=== PATIENT | male | born 1990 | race African-American/Black ===

== ENCOUNTER 2018-10-23 09:54 | Emergency (ER) | payer SELFPAY ==
[2018-10-23 10:08] VITALS: BP 124/76; PULSE 106; TEMP 100.4; BMI 33.3
[2018-10-23] MEDS ORDERED: ACETAMINOPHEN 325 MG TABLET (FP) PO ONE (10:49)
[2018-10-23] MEDS ORDERED: ACETAMINOPHEN 325 MG TABLET (FP) ONE (10:52)
--- NOTE | 2018-10-23 10:54 | PDOC ---
History of Present Illness - General Chief Complaint: Sore Throat Stated Complaint: STREP THROAT Time Seen by Provider: 10/23/18 10:35 History Source: Patient Exam Limitations: Clinical Condition - History of Present Illness Initial Comments: 10/23/18 10:52 Patient with no significant past medical history present with complaint of 2 day history of sore throat and fever. Patient reports taking Motrin for fever yesterday and no medication today. Denies cough, shortness of breath, nasal congestion, nausea or vomiting. Denies abdominal pains. Denies any other symptoms Timing/Duration: other (2 days) Past History - Past Medical History Allergies/Adverse Reactions: Allergies Allergy/AdvReac Type Severity Reaction Status Date / Time No Known Allergies Allergy Verified 10/23/18 10:09 Home Medications: Ambulatory Orders Amox-Tr/K Cl [Augmentin - 875Mg Tablet] 1 tab PO BID #14 tablet 10/23/18 COPD: No - Immunization History Immunization Up to Date: Yes - Suicide/Smoking/Psychosocial Hx Smoking History: Never smoked Hx Alcohol Use: No Drug/Substance Use Hx: No Review of Systems - Review of Systems Able to Perform ROS?: Yes Is the patient limited Nauruan proficient: No Constitutional: Yes: Fever. No: Malaise, Weakness HEENTM: Yes: Symptoms Reported, See HPI, Throat Pain, Difficulty Swallowing. No : Eye Pain, Blurred Vision, Tearing, Recent change in vision, Double Vision, Cataracts, Ear Pain, Ocular Prothesis, Ear Discharge, Nose Pain, Nose Congestion , Tinnitus, Nose Bleeding, Hearing Loss, Throat Swelling, Mouth Pain, Dental Problems, Mouth Swelling, Other Respiratory: No: Symptoms reported, See HPI, Cough, Orthopnea, Shortness of Breath, SOB with Exertion, SOB at Rest, Stridor, Wheezing, Productive cough, Hemoptysis, Other Cardiac (ROS): No: Symptoms Reported, See HPI, Chest Pain, Edema, Irregular Heart Rate, Lightheadedness, Palpitations, Syncope, Chest Tightness, Other ABD/GI: No: Symptoms Reported, Constipated, Diarrhea, Nausea, Vomiting, Abdominal cramping All Other Systems: Reviewed and Negative *Physical Exam - Vital Signs Last Vital Signs Temp Pulse Resp BP Pulse Ox 100.4 F H 106 H 16 124/76 96 10/23/18 10:07 10/23/18 10:07 10/23/18 10:07 10/23/18 10:07 10/23/18 10:07 - Physical Exam Comments: 10/23/18 10:53 GENERAL: Well developed, well nourished. Awake and alert. No acute distress. HEENT: Mild pharyngeal erythema. Normocephalic, atraumatic. PERRLA, EOMI. No conjunctival pallor. Sclera are non-icteric. Moist mucous membranes. NECK: Supple. Full ROM. CARDIOVASCULAR: Regular rate and rhythm. No murmurs, rubs, or gallops. Distal pulses are 2+ and symmetric. PULMONARY: No evidence of respiratory distress. Lungs clear to auscultation bilaterally. No wheezing, rales or rhonchi. ABDOMINAL: Soft. Non-tender. Non-distended. No rebound or guarding. No organomegaly. Normoactive bowel sounds. MUSCULOSKELETAL Normal range of motion at all joints. SKIN: Warm and dry. Normal capillary refill. No rashes. NEUROLOGICAL: Alert, awake, appropriate. Gait is normal without ataxia. PSYCHIATRIC: Cooperative. Good eye contact. Appropriate mood General Appearance: Yes: Nourished, Appropriately Dressed. No: Apparent Distress Medical Decision Making - Medical Decision Making 10/23/18 10:54 Patient with no significant past medical history present with complaint of 2 day history of sore throat and fevers. Exam significant for pharyngeal erythema otherwise normal exam. Symptoms likely strep pharyngitis versus viral pharyngitis with fever. Rapid strep ordered to rule out strep pharyngitis. Tylenol 975 mg by mouth given for fever. Treat based on lab results 10/23/18 11:36 rapid strep positive. Patient stable for outpatient management on Augmentin x 7 days and PCP follow-up *DC/Admit/Observation/Transfer Diagnosis at time of Disposition: Strep pharyngitis - Discharge Dispostion Disposition: HOME Condition at time of disposition: Stable Decision to Admit order: No - Prescriptions Prescriptions: Amox-Tr/K Cl [Augmentin - 875Mg Tablet] 1 tab PO BID #14 tablet - Referrals - Patient Instructions Printed Discharge Instructions: DI for Strep Throat Additional Instructions: strep test is positive. Take prescribed medication as prescribed. Take Tylenol as needed for fever. Increase fluid intake - Post Discharge Activity Forms/Work/School Notes: Back to Work
== END 2018-10-23 11:44 | disposition home or self-care (01) ==
LOC: JERFT 09:54
DX: J02.0 Streptococcal pharyngitis (principal); B95.0 Streptococcus, group A, as the cause of diseases classified elsewhere
CPT/HCPCS: 87880; 99281-25

== ENCOUNTER 2019-05-21 23:47 | Emergency (ER) | payer SELFPAY ==
[2019-05-22 00:06] VITALS: BP 117/77; PULSE 81; TEMP 98.3; BMI 34.2
[2019-05-22] MEDS ORDERED: IBUPROFEN 600 MG TABLET (FP) PO ONE ×2 (00:23→00:27)
--- NOTE | 2019-05-22 00:35 | PDOC ---
History of Present Illness - General Chief Complaint: Pain Stated Complaint: PAIN ON LEFT SIDE OF FACE Time Seen by Provider: 05/22/19 00:16 History Source: Patient Exam Limitations: No Limitations - History of Present Illness Initial Comments: Luis Alfredo is a healthy 29 yo M w a hx of a peptic ulcer who presents to the [facility] er with 3 days of on and off left sided facial pain. He states occasionally when he eats food his face hurts. He rates it as a 6/10 in intensity when the pain comes on. It started yesterday. He has not had a sore throat, fevers, or chills , nausea or vomiting. He is not sure what causes the pain to come or go. He says it is not a lightening like sensation. He does not have the pain here in the ER. he believes sometimes when he eats food his face pain is worsened. PCP: None - [place] [facility] [place] peptic [place] surgery as a kid Social Hx: Denies smoking, drinking, or other substance usage Allergies: NKA, NKDA Past History - Past Medical History Allergies/Adverse Reactions: Allergies Allergy/AdvReac Type Severity Reaction Status Date / Time No Known Allergies Allergy Verified 05/22/19 00:03 Home Medications: Ambulatory Orders NK [No Known Home Medication] 05/22/19 COPD: No - Immunization History Immunization Up to Date: Yes - Psycho Social/Smoking Cessation Hx Smoking History: Never smoked Have you smoked in the past 12 months: No Information on smoking cessation initiated: No Hx Alcohol Use: No Drug/Substance Use Hx: No Review of Systems - Review of Systems Able to Perform ROS?: Yes Comments:: CONSTITUTIONAL: Absent: fever, no chills, no fatigue EYES: Absent: visual changes ENT: Absent: ear pain, no sore throat CARDIOVASCULAR: Absent: chest pain, no palpitations RESPIRATORY: Absent: cough, no SOB GI: Absent: abdominal pain, no nausea, no vomiting, no constipation, no diarrhea GENITOURINARY: Absent: dysuria, no frequency, no hematuria MUSKULOSKELETAL: Absent: back pain, no arthralgia, no myalgia SKIN: Absent: rash NEURO: Absent: headache *Physical Exam - Vital Signs Last Vital Signs Temp Pulse Resp BP Pulse Ox 98.3 F 81 20 117/77 97 05/22/19 00:03 05/22/19 00:03 05/22/19 00:03 05/22/19 00:03 05/22/19 00:03 - Physical Exam GENERAL: Well-appearing, well-nourished. No apparent distress. HEENT: Normocephalic, atraumatic. PERRL, EOM intact. CARDIOVASCULAR: Normal S1, S2. Regular rate and rhythm. PULMONARY: No evidence of respiratory distress. Lungs clear to auscultation bilaterally. No wheezing, rales or rhonchi. ABDOMEN: Soft, non-distended, non-tender. EXTREMITIES: Normal ROM in all four extremities. No gross deformities. SKIN: Warm, dry. No rash NEUROLOGICAL: No focal neurological deficits. ED Treatment Course - Medications Given in the ED: ED Medications Discontinued Medications Generic Name Dose Route Start Last Admin Trade Name Yahaira PRN Reason Stop Dose Admin Ibuprofen 600 mg 05/22/19 00:23 05/22/19 00:28 Motrin - PO 05/22/19 00:24 600 mg ONCE ONE Administration Medical Decision Making - Medical Decision Making Luis Alfredo is a healthy 29 yo M w a hx of a peptic ulcer who presents to the [facility] er with 3 days of on and off left sided facial pain. He states occasionally when he eats food his face hurts. He rates it as a 6/10 in intensity when the pain comes on. It started yesterday. He has not had a sore throat, fevers, or chills , nausea or vomiting. He is not sure what causes the pain to come or go. He says it is not a lightening like sensation. He does not have the pain here in the ER. he believes sometimes when he eats food his face pain is worsened. Vital Signs Temp Pulse Resp BP Pulse Ox 98.3 F 81 20 117/77 97 05/22/19 00:03 05/22/19 00:03 05/22/19 00:03 05/22/19 00:03 05/22/19 00:03 DDx IBNLT: trigeminal neuralgia, TMJ, MSK pain Plan: DANITZA Crystal with PCP referal - Return precautions discussed Discharge - Discharge Information Problems reviewed: Yes Clinical Impression/Diagnosis: Facial pain syndrome Condition: Improved Disposition: HOME - Admission No - Follow up/Referral [place] [facility] [place] [Provider Group] - Patient Discharge Instructions Patient Printed Discharge Instructions: TMJ Syndrome (Alternative Therapy), Temporomandibular Disorder, DI for Trigeminal Neuralgia Additional Instructions: You came into the Er with facial pain. We believe you might have a pinched nerve or temporomandibular joint dysfunction Take ibuprofen and tylenol as needed for pain control. Drink plenty of fluids. Please call the doctor we are referring you to and schedule a follow up appointment in the next 3 to 5 days. Come back to the ER with any new or worsening medical concerns. Print Language: YORUBA - Post Discharge Activity
--- NOTE | 2019-05-22 02:03 | PDOC ---
Attending Attestation - Resident Resident Name: Marvel Calderon - ED Attending Attestation I have performed the following: I have examined & evaluated the patient, The case was reviewed & discussed with the resident, I agree w/resident's findings & plan, Exceptions are as noted - HPI HPI: 05/22/19 01:59 See resident HPI - Physicial Exam PE: 05/22/19 01:59 Agree with exam as documented by resident - Medical Decision Making 05/22/19 01:59 Non-specific jaw pain, not elicitable during interview No signs/symptoms of infections DC PCP follow up
== END 2019-05-22 00:46 | disposition home or self-care (01) ==
LOC: JER 23:47
DX: G50.1 Atypical facial pain (principal); K27.9 Peptic ulcer, site unspecified, unspecified as acute or chronic, without hemorrhage or perforation
CPT/HCPCS: 99281-25

== ENCOUNTER 2019-05-23 10:27 | Emergency (ER) | payer SELFPAY ==
[2019-05-23 10:34] VITALS: BP 107/70; PULSE 75; TEMP 98; BMI 34.2
--- NOTE | 2019-05-23 11:53 | PDOC ---
Attending Attestation - Resident Resident Name: Elvira Vo - HPI HPI: 05/23/19 13:27 Pt presents to the ED complaining of facial pain that has been present for several days. Denies facial swelling, tooth pain, nausea or vomiting, fever. 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 No signs of facial swelling or abscess. No signs of dental carries. 05/23/19 13:33 - Medical Decision Making 05/23/19 13:36 Pt presents to the ED complaining of facial pain. Ct of the face performed and is negative. Will discharge home. 05/23/19 13:37
--- NOTE | 2019-05-23 13:11 | PDOC ---
History of Present Illness - General Chief Complaint: Pain, Acute Stated Complaint: PAIN / REVISIT Time Seen by Provider: 05/23/19 10:59 History Source: Patient Exam Limitations: No Limitations - History of Present Illness Initial Comments: 05/23/19 12:12 29-year-old male presents to ED with intermittent left sided facial pain which now he states face feels he describes as an aching sensation worsened with eating over the past few days. Patient states was seen here a few days ago for the same but was concerned since tingly. Patient denies any weakness, facial droop, or radiation of pain. Patient denies dental discomfort, sinus pressure, recent injury, or headache. Patient also denies any ear or throat pain at this time. Is this a multiple visit Asthma Patient?: No Timing/Duration: intermittent Severity: mild Associated Symptoms: reports: denies symptoms Past History - Travel Traveled outside of the country in the last 30 days: No Close contact w/someone who was outside of country & ill: No - Past Medical History Allergies/Adverse Reactions: Allergies Allergy/AdvReac Type Severity Reaction Status Date / Time No Known Allergies Allergy Verified 05/23/19 10:34 Home Medications: Ambulatory Orders Ibuprofen [Motrin -] 600 mg PO QID PRN 05/23/19 COPD: No - Immunization History Immunization Up to Date: Yes - Psycho Social/Smoking Cessation Hx Smoking History: Never smoked Have you smoked in the past 12 months: No Hx Alcohol Use: No Drug/Substance Use Hx: No Patient Lives Alone: No Lives with/in: spouse/SO Review of Systems - Review of Systems Able to Perform ROS?: No Is the patient limited Occitan proficient: No Constitutional: No: Symptoms Reported HEENTM: Yes: Other (Jaw pain) Respiratory: No: Symptoms reported Cardiac (ROS): No: Symptoms Reported ABD/GI: No: Symptoms Reported : No: Symptoms Reported Musculoskeletal: Yes: Joint Pain Integumentary: No: Symptoms Reported Neurological: Yes: Tingling. No: Numbness, Weakness, Dizziness Hematologic/Lymphatic: No: Symptoms Reported *Physical Exam - Vital Signs Last Vital Signs Temp Pulse Resp BP Pulse Ox 98 F 75 18 107/70 99 05/23/19 10:33 05/23/19 10:33 05/23/19 10:33 05/23/19 10:33 12/07/19 10:33 - Physical Exam General Appearance: Yes: Nourished, Appropriately Dressed. No: Apparent Distress HEENT: positive: EOMI, TITO, TMs Normal, Pharynx Normal, Other (Full range of motion of mandible. No clicking. No fluctuance along the mandible. No reproducible tenderness ). negative: Pale Conjunctivae Neck: positive: Supple. negative: Tender, Decreased range of motion Integumentary: positive: Normal Color, Warm, Moist. negative: Erythema, Rash, Swelling, Ecchymosis Neurologic: positive: Motor Strength 5/5. negative: EOM Palsy, Facial Droop, Numbness, Sensory Deficit ED Treatment Course - RADIOLOGY Radiology Studies Ordered: Category Date Time Status FACIAL BONES CT W/O CONTRAST [CT] Stat CT Scan 05/23/19 11:07 Ordered Medical Decision Making - Medical Decision Making 05/23/19 12:15 Chief complaint: Patient here for reevaluation of left facial pain since he states intermittently has had tingling to the left side of his face since yesterday. Patient has no other complaints. Patient was given a referral but has not followed up as of yet. No meds taken yet Exam: Patient with no reproducible pain or any signs of abscess or deformity Plan: Patient offered Motrin but states is comfortable presently facial CT ordered 05/23/19 13:[address] negative for acute pathology. Patient has referral to internal medicine at [facility]. Recommend taking Motrin or Tylenol for discomfort. Discharge - Discharge Information Problems reviewed: Yes Clinical Impression/Diagnosis: Left-sided face pain Condition: Good Disposition: HOME - Follow up/Referral - Patient Discharge Instructions Patient Printed Discharge Instructions: DI for Trigeminal Neuralgia Additional Instructions: Please motrin 600mg tid for pain. Follow up with your referred PMD - Post Discharge Activity
== END 2019-05-23 13:44 | disposition home or self-care (01) ==
LOC: JER 10:27
DX: G50.0 Trigeminal neuralgia (principal)
CPT/HCPCS: 70486-TC; 99281-25

== ENCOUNTER 2019-12-30 16:19 | Emergency (ER) | payer SELFPAY ==
[2019-12-30 16:31] VITALS: BP 126/77; PULSE 84; TEMP 99.6; BMI 34.7
--- NOTE | 2019-12-30 16:31 | PDOC ---
Rapid Medical Evaluation Chief Complaint: Eye Problem Time Seen by Provider: 12/30/19 16:28 Medical Evaluation: Allergies Allergy/AdvReac Type Severity Reaction Status Date / Time No Known Allergies Allergy Verified 05/23/19 10:34 12/30/19 16:28 29 year old male with B/L eye puritis and discharge that began 4 days ago. no vision changes, no photophobia, no fever, chills N/V Eyes: B/L conjuntivits NOAH Plan: Out pt abx Opto f/u Pt to precede to ED for further evaluation and treatment at the discretion of the provider in the ED Discharge Disposition - Discharge Dispostion Condition at time of disposition: Stable - Referrals - Patient Instructions - Post Discharge Activity
--- NOTE | 2019-12-30 17:03 | PDOC ---
History of Present Illness - General Chief Complaint: Eye Problem Stated Complaint: PINK EYE Time Seen by Provider: 12/30/19 16:28 History Source: Patient Exam Limitations: No Limitations - History of Present Illness Initial Comments: 12/30/19 16:58 Patient is a 29-year-old male with no past medical history who presents to the ED with complaint of bilateral eye redness, itching and irritation. He states the right eye started 1 week ago in the left eye started 2 days ago. He has been waking up with eye crusting. He denies any visual changes. He does not wear contact lenses or glasses. He denies any allergies to medications. He states he has been using warm water to clean his eyes but it has not made the problem go away. Past History - Medical History Allergies/Adverse Reactions: Allergies Allergy/AdvReac Type Severity Reaction Status Date / Time No Known Allergies Allergy Verified 12/30/19 16:41 Home Medications: Ambulatory Orders Ibuprofen [Motrin -] 600 mg PO QID PRN 05/23/19 Erythromycin 0.5% Eye Ointment [Erythromycin 0.5% Eye Ointment -] 1 applic OU BID #1 tube 12/30/19 COPD: No - Immunization History Immunization Up to Date: Yes - Psycho-Social/Smoking History Smoking History: Never smoked Have you smoked in the past 12 months: No Information on smoking cessation initiated: No - Substance Abuse Hx (Audit-C & DAST Scrn) How often the patient has a drink containing alcohol: Never Score: In Men: 4 or > Positive; In Women: 3 or > Positive: 0 Screen Result (Pos requires Nsg. Audit-10AR): Negative In the last yr the pt used illegal drug/Rx for NonMed reason: No Score: Yes response is considered Positive: 0 Screen Result (Positive result requires Nsg. DAST-10): Negative Review of Systems - Review of Systems Comments:: 12/30/19 16:58 - Review of Systems Able to Perform ROS?: Yes Constitutional: No: Fever, Chills, Loss of Appetite, Night Sweats, Weakness HEENTM: No: Eye Pain, Vision changes, Ear Pain, Throat Pain, Throat Swelling, Mouth Pain, Difficulty Swallowing; positive: Bilateral eye redness and itching Respiratory: No: Cough, Shortness of Breath, Wheezing, Sputum Production Cardiac (ROS): No: Chest Pain, Chest Tightness, Palpitations, Irregular Heart Beat, Edema ABD/GI: No: Nausea, Vomiting, Abdominal Pain, Diarrhea : No Dysuria, No Hematuria, No Frequency, No Urgency Musculoskeletal: No: Muscle Pain, Back Pain, Joint Pain, Muscle Weakness, Neck Pain Integumentary: No: Lesions, Rash Neurological: No: Headache, Numbness, Tingling, Weakness, Speech Difficulties *Physical Exam - Vital Signs Last Vital Signs Temp Pulse Resp BP Pulse Ox 99.6 F 84 18 126/77 98 12/30/19 16:27 12/30/19 16:27 12/30/19 16:27 12/30/19 16:27 12/30/19 16:27 - Physical Exam 12/30/19 16:58 - Physical Exam General Appearance: Nourished, Appropriately Dressed, No Distress HEENT: EOMI, Normal Voice, No Pharyngeal Erythema, No Muffled/Hoarse voice, No Tonsillar Exudate, No Tonsillar Erythema, No Nasal Congestion, No Rhinorrhea, Hearing Grossly Normal, TMs Normal, No TM Bulging, No TM Dullness, No TM Erythema; bilateral ear effusions, noninfectious appreciated. Right eye with significant conjunctivitis appreciated and purulent drainage appreciated. No tenderness with pressing on the globes. Left eye with less severe conjunctivitis and no purulent drainage appreciated. EOMI without pain. PERRLA bilateral. Visual acuity 20/25 OU Neck: Supple, No Lymphadenopathy (R), No Lymphadenopathy (L), No Rigidity, No Decreased range of motion Respiratory/Chest: Lungs Clear, Normal Breath Sounds. No Respiratory Distress, No Accessory Muscle Use Cardiovascular: Regular Rhythm, Regular Rate, S1, S2 Gastrointestinal/Abdominal: Normal Bowel Sounds, Soft. Non-tender, No Guarding, No Rebound, No Rigidity Musculoskeletal: Normal Inspection. No Decreased Range of Motion Extremity: Normal Capillary Refill, Normal Inspection Integumentary: Normal Color, Dry. No Rash Neurologic: setter out II-XII NML intact, Fully Oriented, Alert, Normal Mood/Affect, Normal Response Medical Decision Making - Medical Decision Making 12/30/19 17:00 Assessment: Patient is a 29-year-old male with bilateral conjunctivitis right worse than left. Plan: We will DC the patient is on erythromycin ointment. He should follow-up with his primary doctor within 1 to 2 days for repeat evaluation. He should continue his hygiene on his eyes. He understands and agrees with this treatment plan and he is stable for discharge. Discharge - Discharge Information Problems reviewed: Yes Clinical Impression/Diagnosis: Conjunctivitis Qualifiers: Conjunctivitis type: acute Acute conjunctivitis type: bacterial Laterality: bilateral Qualified Code(s): H10.33 - Unspecified acute conjunctivitis, bilateral Condition: Stable Disposition: HOME - Additional Discharge Information Prescriptions: Erythromycin 0.5% Eye Ointment [Erythromycin 0.5% Eye Ointment -] 1 applic OU BID #1 tube - Follow up/Referral Referrals: [facility] [place] [facility] at [place] [Provider Group] - Patient Discharge Instructions Patient Printed Discharge Instructions: DI for Conjunctivitis Additional Instructions: Apply the ointment to both eyes twice daily for 7 days. Be sure to continue eye hygiene and use warm water to clean. Do not share towels or other face treatments with other people as this is very contagious. Follow-up with your primary doctor within 1 to 2 days for repeat evaluation. - Post Discharge Activity
== END 2019-12-30 17:14 | disposition home or self-care (01) ==
LOC: JER 16:19
DX: H10.33 Unspecified acute conjunctivitis, bilateral (principal)
CPT/HCPCS: 99283-25

== ENCOUNTER 2020-05-18 10:47 | Emergency (ER) | payer SELFPAY ==
[2020-05-18 10:52] VITALS: BP 139/83; PULSE 76; TEMP 98.5; BMI 33.5
[2020-05-18] MEDS ORDERED: AZITHROMYCIN 500 MG TABLET PO ONE (11:22)
[2020-05-18 11:28] LABS: EPI CELLS 0 /uL (0-25.1); HYALINE CASTS 21 /uL (0-3.1); URINE APPEARANCE CLEAR; URINE BACTERIA 86 /uL (0-1359); URINE BILIRUBIN NEGATIVE (NEGATIVE); URINE COLOR YELLOW; URINE GLUCOSE (UA) NEGATIVE (NEGATIVE); URINE KETONE NEGATIVE (NEGATIVE); URINE LEUK ESTERASE 2+ (NEGATIVE); URINE NITRITE NEGATIVE (NEGATIVE); URINE PROTEIN NEGATIVE (NEGATIVE); URINE RBC 18 /uL (0-23.9); URINE WBC 656 /uL (0-25.8)
[2020-05-18] MEDS ORDERED: AZITHROMYCIN 250 MG TABLET ONE (11:28)
== END 2020-05-18 12:05 | disposition home or self-care (01) ==
LOC: JERFT 10:47
DX: R36.9 Urethral discharge, unspecified (principal)
CPT/HCPCS: 36415; 81003; 87086; 87491; 87591; 99284-25

== ENCOUNTER 2020-08-15 21:01 | Emergency (ER) | payer SELFPAY ==
[2020-08-15 21:11] VITALS: BP 129/75; PULSE 79; TEMP 99; BMI 35.1
[2020-08-15 22:44] LABS: PH,URINE 6.5 (5.0-8.0); URINE APPEARANCE CLEAR; URINE BILIRUBIN NEGATIVE (NEGATIVE); URINE COLOR YELLOW; URINE GLUCOSE (UA) NEGATIVE (NEGATIVE); URINE KETONE TRACE (NEGATIVE); URINE LEUK ESTERASE NEGATIVE (NEGATIVE); URINE NITRITE NEGATIVE (NEGATIVE); URINE PROTEIN NEGATIVE (NEGATIVE); URINE UROBILINOGEN 0.2 mg/dL (0.2-1.0)
[2020-08-16 00:25] LABS: HIV INTERPRETATION NEGATIVE (NEGATIVE)
== END 2020-08-15 22:50 | disposition home or self-care (01) ==
LOC: JER 21:01 → JERFT 21:01
DX: Z11.3 Encounter for screening for infections with a predominantly sexual mode of transmission (principal)
CPT/HCPCS: 36415; 81003; 86780; 87389; 87491; 87591; 99283-25

== ENCOUNTER 2021-12-06 11:54 | Emergency (ER) | payer SELFPAY ==
[2021-12-06 12:02] VITALS: BP 134/80; PULSE 90; TEMP 98.9; BMI 34.7
[2021-12-06] MEDS ORDERED: LIDOCAINE HCL 1%, 10 MG/ML (20ML VIAL) ONE (12:59)
[2021-12-06 14:02] LABS: URINE APPEARANCE CLEAR; URINE BILIRUBIN NEGATIVE (NEGATIVE); URINE COLOR YELLOW; URINE GLUCOSE (UA) NEGATIVE (NEGATIVE); URINE KETONE NEGATIVE (NEGATIVE); URINE LEUK ESTERASE NEGATIVE (NEGATIVE); URINE NITRITE NEGATIVE (NEGATIVE); URINE PROTEIN NEGATIVE (NEGATIVE); URINE UROBILINOGEN 0.2 mg/dL (0.2-1.0)
== END 2021-12-06 13:49 | disposition home or self-care (01) ==
LOC: JERFT 11:54
PROC: 3E023GC Introduction of Other Therapeutic Substance into Muscle, Percutaneous Approach (ICD-10-PCS; principal; 2021-12-06)
DX: R30.0 Dysuria (principal); Z20.2 Contact with and (suspected) exposure to infections with a predominantly sexual mode of transmission
CPT/HCPCS: 36415; 81003; 87086; 87491; 87591; 99284-25

== ENCOUNTER 2022-02-26 13:53 | Emergency (ER) | payer SELFPAY ==
[2022-02-26 14:03] VITALS: TEMP 98.1; BMI 173.6
[2022-02-26 14:43] VITALS: BP 113/67; PULSE 76; RESP 20
[2022-02-26] MEDS ORDERED: KETOROLAC TROMETHAMINE 30 MG/1 ML VIAL IM ONE (15:41)
[2022-02-26] MEDS ORDERED: LIDOCAINE 5% TOPICAL PATCH TP ONE (15:41)
[2022-02-26] MEDS ORDERED: LIDOCAINE 5% TOPICAL PATCH ONE (15:59)
[2022-02-26] MEDS ORDERED: KETOROLAC TROMETHAMINE 30 MG/1 ML VIAL ONE (15:59)
[2022-02-26] MEDS ORDERED: LIDOCAINE PATCH REMOVAL MC SCH (22:00)
== END 2022-02-26 16:51 | disposition home or self-care (01) ==
LOC: JER 13:53
PROC: 3E023GC Introduction of Other Therapeutic Substance into Muscle, Percutaneous Approach (ICD-10-PCS; principal; 2022-02-26)
DX: R07.89 Other chest pain (principal)
CPT/HCPCS: 71046-TC-FY; 93005; 93010; 99284-25

== ENCOUNTER 2022-03-01 04:16 | Emergency (ER) | payer SELFPAY ==
[2022-03-01] MEDS ORDERED: LIDOCAINE 5% TOPICAL PATCH TP ONE (04:58)
[2022-03-01] MEDS ORDERED: KETOROLAC TROMETHAMINE 15 MG/ML VIAL IVPUSH ONE (04:58)
[2022-03-01 04:59] VITALS: RESP 20; TEMP 98.9; BMI 35.4
[2022-03-01] MEDS ORDERED: LIDOCAINE 5% TOPICAL PATCH ONE (05:00)
[2022-03-01] MEDS ORDERED: KETOROLAC TROMETHAMINE 15 MG/ML VIAL ONE (05:01)
[2022-03-01 06:00] LABS: BASO % 0.7 % (0-2.0); EOS % 2.3 % (0-4.5); HEMATOCRIT 44.6 % (35.4-49); HEMOGLOBIN 15.8 GM/dL (11.7-16.9); LYMPH % 47.7 % (8-40); MCHC 35.4 g/dl (32.0-35.9); MEAN CELL VOLUME 87.4 fl (80-96); MEAN PLT VOLUME 9.9 fl (7.5-11.1); MONO % 8.8 % (3.8-10.2); NEUT % 40.5 % (42.8-82.8); PLATELET COUNT 205 10^3/uL (134-434); RDW 14.2 % (11.9-15.9)
[2022-03-01 06:21] LABS: PROTHROMBIN TIME (PATIENT) 11.5 SEC (9.7-13.0)
[2022-03-01 06:22] LABS: CALCIUM 8.5 mg/dL (8.5-10.1)
[2022-03-01 06:23] LABS: ACTIVATED PTT 37.1 SECONDS (25.2-36.5); ALBUMIN 3.7 g/dl (3.4-5.0); BLOOD UREA NITROGEN 17.7 mg/dL (7-18); MAGNESIUM 2.1 mg/dL (1.8-2.4)
[2022-03-01 06:26] LABS: CREATININE 1.1 mg/dL (0.55-1.3)
[2022-03-01 06:27] LABS: BILIRUBIN,TOTAL 0.4 mg/dL (0.2-1); TOT PROT 7.2 g/dl (6.4-8.2)
[2022-03-01 11:58] VITALS: BP 121/81; PULSE 81
[2022-03-01] MEDS ORDERED: LIDOCAINE PATCH REMOVAL MC SCH (22:00)
== END 2022-03-01 11:15 | disposition home or self-care (01) ==
LOC: JER 04:16
PROC: 3E033GC Introduction of Other Therapeutic Substance into Peripheral Vein, Percutaneous Approach (ICD-10-PCS; principal; 2022-03-01)
DX: R10.11 Right upper quadrant pain (principal); M25.511 Pain in right shoulder
CPT/HCPCS: 36415; 71045-TC-FY; 76705-TC; 80053; 83690; 83735; 84484; 85025; 85379; 85610; 85730; 93005; 93010; 99285-25; C9803-CS; U0003; U0005

== ENCOUNTER 2022-06-29 12:25 | Emergency (ER) | payer SELFPAY ==
[2022-06-29 12:34] VITALS: BP 127/82; PULSE 84; RESP 20; TEMP 97.4; BMI 36.1
[2022-06-29] MEDS ORDERED: ACETAMINOPHEN 500 MG TABLET (FP) PO ONE (13:08)
[2022-06-29] MEDS ORDERED: LIDOCAINE 5% TOPICAL PATCH TP ONE (13:09)
[2022-06-29] MEDS ORDERED: IBUPROFEN 600 MG TABLET (FP) PO ONE ×2 (13:09→13:19)
[2022-06-29] MEDS ORDERED: LIDOCAINE 5% TOPICAL PATCH ONE (13:19)
[2022-06-29] MEDS ORDERED: ACETAMINOPHEN 325 MG TABLET (FP) ONE (13:19)
[2022-06-29] MEDS ORDERED: LIDOCAINE PATCH REMOVAL MC SCH (22:00)
== END 2022-06-29 14:26 | disposition home or self-care (01) ==
LOC: JERFT 12:25
DX: R07.89 Other chest pain (principal)
CPT/HCPCS: 99283-25

== ENCOUNTER 2022-08-03 16:16 | Emergency (ER) | payer SELFPAY ==
[2022-08-03 16:21] VITALS: BP 102/68; PULSE 87; RESP 18; TEMP 98.3; BMI 36.6
[2022-08-03] MEDS ORDERED: METOCLOPRAMIDE HCL 10 MG TABLET (FP) PO ONE ×2 (17:27→17:33)
[2022-08-03] MEDS ORDERED: IBUPROFEN 400 MG TABLET (FP) PO ONE ×2 (17:27→17:33)
[2022-08-03] MEDS ORDERED: ACETAMINOPHEN 325 MG TABLET (FP) PO ONE (19:21)
[2022-08-03] MEDS ORDERED: PSEUDOEPHEDRINE HCL 30 MG TABLET PO ONE (19:22)
[2022-08-03] MEDS ORDERED: PSEUDOEPHEDRINE HCL 60 MG TABLET ONE (19:25)
[2022-08-03] MEDS ORDERED: ACETAMINOPHEN 325 MG TABLET (FP) ONE (19:25)
== END 2022-08-03 19:31 | disposition home or self-care (01) ==
LOC: JER 16:16
DX: J01.90 Acute sinusitis, unspecified (principal); R51.9 Headache, unspecified
CPT/HCPCS: 0241U-QW; 99283-25

== ENCOUNTER 2022-08-23 11:08 | Emergency (ER) | payer SELFPAY ==
[2022-08-23 11:21] VITALS: BP 129/76; PULSE 88; RESP 20; TEMP 97.8; BMI 36.1
[2022-08-23 12:34] LABS: EPI CELLS 0 /uL (0-25.1); HYALINE CASTS 9 /uL (0-3.1); PH,URINE 7.5 (5.0-8.0); URINE APPEARANCE CLEAR; URINE BACTERIA 42 /uL (0-1359); URINE BILIRUBIN NEGATIVE (NEGATIVE); URINE COLOR YELLOW; URINE GLUCOSE (UA) NEGATIVE (NEGATIVE); URINE KETONE NEGATIVE (NEGATIVE); URINE LEUK ESTERASE 2+ (NEGATIVE); URINE NITRITE NEGATIVE (NEGATIVE); URINE PROTEIN NEGATIVE (NEGATIVE); URINE RBC 28 /uL (0-23.9); URINE WBC 955 /uL (0-25.8)
[2022-08-23 13:17] LABS: SYPHILIS W/ RPR CONF NON-REACTIVE (NONREACTIVE)
[2022-08-23 13:45] LABS: HIV INTERPRETATION NEGATIVE (NEGATIVE)
== END 2022-08-23 12:18 | disposition home or self-care (01) ==
LOC: JER 11:08 → JERFT 11:08
DX: R36.9 Urethral discharge, unspecified (principal)
CPT/HCPCS: 36415; 81003; 86780; 87086; 87389; 87491; 87591; 87661; 99284-25

== ENCOUNTER 2022-12-07 23:10 | Emergency (ER) | payer SELFPAY ==
[2022-12-07 23:17] VITALS: BP 138/95; PULSE 102; RESP 18; TEMP 98.1; BMI 35.4
[2022-12-08] MEDS ORDERED: DOXYCYCLINE HYCLATE 100 MG CAPSULE PO ONE ×2 (00:55→01:08)
[2022-12-08] MEDS ORDERED: LIDOCAINE HCL 2% (20ML MULTI-DOSE VIAL) ONE (01:09)
[2022-12-08 01:11] LABS: EPI CELLS 12 /uL (0-25.1); HYALINE CASTS 29 /uL (0-3.1); PH,URINE 6.5 (5.0-8.0); URINE APPEARANCE CLEAR; URINE BACTERIA 10 /uL (0-1359); URINE BILIRUBIN NEGATIVE (NEGATIVE); URINE COLOR YELLOW; URINE GLUCOSE (UA) NEGATIVE (NEGATIVE); URINE KETONE NEGATIVE (NEGATIVE); URINE LEUK ESTERASE 2+ (NEGATIVE); URINE NITRITE NEGATIVE (NEGATIVE); URINE PROTEIN NEGATIVE (NEGATIVE); URINE RBC 12 /uL (0-23.9); URINE WBC 362 /uL (0-25.8)
[2022-12-08 04:19] LABS: HIV INTERPRETATION NEGATIVE (NEGATIVE)
== END 2022-12-08 01:32 | disposition home or self-care (01) ==
LOC: JER 23:10
DX: R36.9 Urethral discharge, unspecified (principal); R00.0 Tachycardia, unspecified
CPT/HCPCS: 36415; 81003; 86780; 87086; 87389; 87491; 87591; 87661; 99284-25

== ENCOUNTER 2022-12-28 20:44 | Emergency (ER) | payer SELFPAY ==
[2022-12-28 20:47] VITALS: BP 130/74; PULSE 94; RESP 20; TEMP 98.2; BMI 36.1
[2022-12-28 22:32] LABS: EPI CELLS 5 /uL (0-25.1); HYALINE CASTS 1 /uL (0-3.1); PH,URINE 6.5 (5.0-8.0); URINE APPEARANCE CLEAR; URINE BACTERIA 3 /uL (0-1359); URINE BILIRUBIN NEGATIVE (NEGATIVE); URINE COLOR YELLOW; URINE GLUCOSE (UA) NEGATIVE (NEGATIVE); URINE KETONE TRACE (NEGATIVE); URINE LEUK ESTERASE 1+ (NEGATIVE); URINE NITRITE NEGATIVE (NEGATIVE); URINE PROTEIN TRACE (NEGATIVE); URINE RBC 39 /uL (0-23.9); URINE WBC 53 /uL (0-25.8)
== END 2022-12-29 00:02 | disposition home or self-care (01) ==
LOC: JER 20:44
DX: R36.1 Hematospermia (principal)
CPT/HCPCS: 36415; 81003; 87491; 87591; 99283-25

== ENCOUNTER 2023-07-05 00:05 | Emergency (ER) | payer SELFPAY ==
[2023-07-05 00:11] VITALS: BP 118/73; PULSE 79; RESP 16; TEMP 98.3; BMI 36.7
== END 2023-07-05 02:23 | disposition home or self-care (01) ==
LOC: JER 00:05
DX: R05.9 Cough, unspecified (principal); Z20.822 Contact with and (suspected) exposure to COVID-19
CPT/HCPCS: 0241U-QW; 99283-25

== ENCOUNTER 2023-08-19 18:02 | Emergency (ER) | payer SELFPAY ==
[2023-08-19 18:16] VITALS: BP 122/80; PULSE 93; RESP 16; TEMP 98.2; BMI 37.2
[2023-08-19] MEDS ORDERED: KETOROLAC TROMETHAMINE 15 MG/ML VIAL ONE (19:57)
[2023-08-19] MEDS: KETOROLAC TROMETHAMINE 15 MG/ML VIAL IM ONE (20:15)
[2023-08-19] MEDS: SODIUM CHLORIDE 0.9% 500 ML INFUS.BAG IV ONE (20:15)
[2023-08-19 20:21] LABS: URINE APPEARANCE CLEAR; URINE BILIRUBIN NEGATIVE (NEGATIVE); URINE COLOR YELLOW; URINE GLUCOSE (UA) NEGATIVE (NEGATIVE); URINE KETONE NEGATIVE (NEGATIVE); URINE LEUK ESTERASE NEGATIVE (NEGATIVE); URINE NITRITE NEGATIVE (NEGATIVE); URINE PROTEIN NEGATIVE (NEGATIVE)
[2023-08-19 20:23] LABS: BASO % 0.9 % (0-2.0); EOS % 2.4 % (0-4.5); HEMATOCRIT 42.6 % (35.4-49); HEMOGLOBIN 15.3 GM/dL (11.7-16.9); LYMPH % 43.7 % (8-40); MCH 31.2 pg (25.7-33.7); MCHC 35.9 g/dl (32.0-35.9); MEAN CELL VOLUME 87.1 fl (80-96); MEAN PLT VOLUME 9.1 fl (7.5-11.1); MONO % 9.3 % (3.8-10.2); NEUT % 43.7 % (42.8-82.8); PLATELET COUNT 232 10^3/uL (134-434); RBC 4.89 M/mm3 (4.00-5.60); RDW 14.4 % (11.9-15.9); WHITE BLOOD COUNT 6.2 K/mm3 (4.0-10.0)
[2023-08-19 20:45] LABS: POTASSIUM 4.3 mmol/L (3.5-5.1)
[2023-08-19 20:47] LABS: CALCIUM 8.5 mg/dL (8.5-10.1)
[2023-08-19 20:48] LABS: ALBUMIN 3.7 g/dl (3.4-5.0); BLOOD UREA NITROGEN 9.1 mg/dL (7-18)
[2023-08-19 20:51] LABS: CREATININE 1.1 mg/dL (0.55-1.3)
[2023-08-19 20:53] LABS: TOT PROT 7.4 g/dl (6.4-8.2)
[2023-08-19 20:54] LABS: BILIRUBIN,TOTAL 0.4 mg/dL (0.2-1)
[2023-08-19] MEDS ORDERED: ACETAMINOPHEN INJECTION 100 ML IVPB ONE (21:11)
[2023-08-19] MEDS: ACETAMINOPHEN 1000 MG/100 ML BAG IVPB ONE (21:16)
== END 2023-08-19 23:43 | disposition home or self-care (01) ==
LOC: JER 18:02
PROC: 3E0233Z Introduction of Anti-inflammatory into Muscle, Percutaneous Approach (ICD-10-PCS; principal; 2023-08-19)
DX: R10.814 Left lower quadrant abdominal tenderness (principal); K65.9 Peritonitis, unspecified
CPT/HCPCS: 36415; 74177-TC; 80053; 81003; 85025; 87086; 87491; 87591; 99285-25; Q9967